=== PATIENT | female | born 1975 | race Caucasian/White ===

== ENCOUNTER 2017-11-19 11:55 | Emergency (ER) | payer BC, OTHER ==
[~2017-11-19] VITALS: Ht 162.6 cm; Wt 71.7 kg
[~2017-11-19 11:55] MED LIST: ACET-1311 PO; IBUP-1050 PO; PRENTAB26 PO
[2017-11-19 11:57] VITALS: BP 132/85; TEMP 36.5; Ht 162.6 cm; Wt 71.7 kg
[2017-11-19] MEDS ORDERED: ACETAMINOPHEN 500 MG TAB PO STA (12:19)
[2017-11-19] MEDS ORDERED: CITA20TA9 PO (12:33)
[2017-11-19 12:45] LABS: ISTAT CREATININE 0.9 mg/dl (0.6-1.3); ISTAT IONIZED CALCIUM 1.19 mmol/l (1.12-1.32); ISTAT POTASSIUM 3.6 mEq/L (3.3-5.0)
[2017-11-19] MEDS ORDERED: OPTIRAY 320 IV PRN (14:30)
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
--- NOTE | 2017-11-19 14:45 | DIAGNOSTIC IMAGING REPORT ---
(CHEST) THORAX WITH CT DOSE: HISTORY: Trauma Anterior wall chest pain TECHNIQUE: Multiaxial CT images of the chest were performed following the intravenous administration of contrast. A dose lowering technique was utilized adhering to the principles of ALARA. COMPARISON: None. FINDINGS: The lungs are clear. The mediastinal vascular structures are within normal limits. No mediastinal or hilar lymphadenopathy. No pleural effusion or pneumothorax. Limited views of the upper abdomen demonstrate a normal liver and spleen. IMPRESSION: No significant abnormality identified within the chest. The lungs are clear. The above report was generated using voice recognition software. It may contain grammatical, syntax or spelling errors. Electronically signed by: Mayur Sanders M.D. 11/19/2017 2:44 PM Dictated Date/Time: 11/19/2017 2:39 PM
[2017-11-19 15:20] VITALS: PULSE 89; O2SAT 96
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
== END 2017-11-19 15:20 | disposition home or self-care (01) ==
LOC: C.EDB 11:56 → C.EDD 15:20
DX: S16.1XXA Strain of muscle, fascia and tendon at neck level, initial encounter (principal); S20.211A Contusion of right front wall of thorax, initial encounter; V49.50XA Passenger injured in collision with unspecified motor vehicles in traffic accident, initial encounter